=== PATIENT | male | born 1985 | race Caucasian/White ===

== ENCOUNTER 2016-12-17 06:10 | Emergency (ER) | payer MEDICAID ==
[2016-12-17 06:25] VITALS: BP 146/84
[2016-12-17] MEDS ORDERED: Ketorolac 60 MG/2 ML SDV IM ONE (06:38)
[2016-12-17] MEDS ORDERED: Acetaminophen/HYDROcodone 325-5 MG Tab PO ONE (06:39)
--- NOTE | 2016-12-17 06:43 | EDM.PDOC ---
ED HPI GENERAL MEDICAL PROBLEM - General Chief Complaint: ENT Problem Stated Complaint: TOOTHACHE Time Seen by Provider: 12/17/16 06:40 Source of Information: Reports: Patient History Limitations: Reports: No Limitations - History of Present Illness INITIAL COMMENTS - FREE TEXT/NARRATIVE: pt has a carious molar in the rt upper gum line. This is very painful for him. Onset: Gradual Duration: Day(s):, Getting Worse Location: Reports: Face Associated Symptoms: Reports: No Other Symptoms Right Upper Oral/Mouth Pain Score (Numeric/FACES): 9 - Related Data Allergies Allergy/AdvReac Type Severity Reaction Status Date / Time No Known Allergies Allergy Verified 04/13/13 13:51 Home Meds: Home Meds Acetaminophen [Tylenol Extra Strength] 2,000 mg PO ASDIRECTED 12/17/16 [History] Ibuprofen 1,200 mg PO ASDIRECTED 12/17/16 [History] QUEtiapine [SEROquel] 300 mg PO DAILY 12/17/16 [History] Past Medical History Musculoskeletal History: Reports: Fracture Psychiatric History: Reports: Dementia - Infectious Disease History Infectious Disease History: Reports: Chicken Pox - Past Surgical History Male Surgical History: Reports: Other (See Below) Other Male Surgeries/Procedures: testicle removal Social & Family History - Tobacco Use Smoking Status *Q: Light Tobacco Smoker Years of Tobacco use: 15 Packs/Tins Daily: 0.1 Used Tobacco, but Quit: No - Caffeine Use Caffeine Use: Reports: Coffee - Alcohol Use Days Per Week of Alcohol Use: 1 Number of Drinks Per Day: 6 Total Drinks Per Week: 6 - Recreational Drug Use Recreational Drug Use: No Recreational Drug Type: Reports: Marijuana/Hashish, Other (see below) Recreational Drug Use Frequency: Daily ED ROS ENT - Review of Systems Review Of Systems: See Below Constitutional: Reports: No Symptoms HEENT: Reports: Dental Pain Respiratory: Reports: No Symptoms Cardiovascular: Reports: No Symptoms Endocrine: Reports: No Symptoms GI/Abdominal: Reports: No Symptoms : Reports: No Symptoms ED EXAM, ENT - Physical Exam Exam: See Below Text/Narrative:: pt has severe pain in the rt upper molar area. Exam Limited By: No Limitations General Appearance: Alert, Moderate Distress Ears: Normal TMs Nose: Normal Inspection Mouth/Throat: Dental Pain, Dental Tenderness Head: Atraumatic Neck: Normal Inspection Respiratory/Chest: No Respiratory Distress Course - Vital Signs Last Recorded V/S: Last Vital Signs Temp 35.8 C 12/17/16 06:21 Pulse 53 L 12/17/16 06:21 Resp 16 12/17/16 06:21 BP 146/84 H 12/17/16 06:21 Pulse Ox 98 12/17/16 06:21 - Orders/Labs/Meds Meds: Medications Discontinued Medications Generic Name Dose Route Start Last Admin Trade Name Freq PRN Reason Stop Dose Admin Hydrocodone Bitart/Acetaminophen 1 tab 12/17/16 06:39 Bronson 325-5 Mg PO 12/17/16 06:40 ONETIME ONE Ketorolac Tromethamine 60 mg 12/17/16 06:38 Toradol IM 12/17/16 06:39 ONETIME ONE - Re-Assessments/Exams Free Text/Narrative Re-Assessment/Exam: 12/17/16 06:45 pt had a dental appt in 1 week in [facility] but he has now moved. The pain has now gotten much worse. The tooth was to be extracted in [place] but he has now moved. Departure - Departure Time of Disposition: 06:48 Disposition: Home, Self-Care 01 Condition: Fair Clinical Impression: Carious teeth - Discharge Information Forms: ED Department Discharge Care Plan Goals: to the dental clinic this am to wait. amoxicilloin 500mg tid, tylenol 3 1 tab q6h prn for pain.
== END 2016-12-17 07:04 | disposition home or self-care (01) ==
LOC: JP.ED 06:10
DX: K02.9 Dental caries, unspecified (principal); F17.210 Nicotine dependence, cigarettes, uncomplicated; Z79.899 Other long term (current) drug therapy; Z90.79 Acquired absence of other genital organ(s)
CPT/HCPCS: 96372; 99283; A9270; J1885

== ENCOUNTER 2017-03-05 01:56 | Emergency (ER) | payer MEDICAID ==
[2017-03-05] MEDS ORDERED: Bacitracin Oint 1 GM U/D Packet TOP ONE (02:06)
[2017-03-05 02:21] VITALS: BP 140/85
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
== END 2017-03-05 03:13 | disposition home or self-care (01) ==
LOC: MERGE 01:56 → EDSEX 01:56 → JP.ED 01:56
DX: S01.511A Laceration without foreign body of lip, initial encounter (principal); H11.32 Conjunctival hemorrhage, left eye; Y09 Assault by unspecified means
CPT/HCPCS: 12013; 99283-25

== ENCOUNTER 2021-04-13 01:36 | Emergency (ER) | payer OTHER ==
--- NOTE | 2021-04-13 01:56 | EDM.PDOCBH ---
ED HPI GENERAL MEDICAL PROBLEM - General Chief Complaint: Behavioral/Psych Stated Complaint: evaluation Time Seen by Provider: 04/13/21 01:43 Source of Information: Reports: Patient, Police History Limitations: Reports: No Limitations - History of Present Illness INITIAL COMMENTS - FREE TEXT/NARRATIVE: Palmer is a 35-year-old male who presents to the ED via [facility] for evaluation of depression, intoxication, and suicide ideation. The patient is cooperative and calm describing that he is going through a divorce. The patient got in December and his left him in January and has been going through divorce proceedings since. The patient has a history significant for depression since childhood and has had several inpatient admissions related to depression at facilities including [facility], [facility], and [place] to name a few. He has had a previous suicide attempt by overdose of aspirin at age 14 and reports that he is currently on parole for felony gun possession when he took a handgun to his head threatening suicide in 2018. He does report drinking 4 strong drinks tonight and law enforcement said that his PBT was 0.77. He has had difficulty with sleep. He is a little slow to answer questions tonight because he took his Seroquel nighttime dose prior to being brought in. He was on another medication which was a mood stabilizer, however, states that he has not used it in several months. He is here voluntarily wanting to get help. He is up in this area because he came to visit his daughter. Family called law enforcement to intervene because he was suicidal. - Related Data Allergies Allergy/AdvReac Type Severity Reaction Status Date / Time No Known Allergies Allergy Verified 04/13/21 01:51 Home Meds: Home Meds QUEtiapine [SEROquel] 100 mg PO DAILY 12/17/16 [History] Past Medical History - Past Health History Medical/Surgical History: Denies Medical/Surgical History Musculoskeletal History: Reports: Fracture Psychiatric History: Reports: Anxiety, Other (See Below) Other Psychiatric History: mood stabilizer - Infectious Disease History Infectious Disease History: Reports: Chicken Pox - Past Surgical History Male Surgical History: Reports: Other (See Below) Other Male Surgeries/Procedures: testicle removal Social & Family History - Caffeine Use Caffeine Use: Reports: Coffee - Living Situation & Occupation Occupation: Unemployed (Lives with his parents) ED ROS GENERAL - Review of Systems Review Of Systems: See Below Constitutional: Reports: No Symptoms HEENT: Reports: No Symptoms Respiratory: Reports: No Symptoms Cardiovascular: Reports: No Symptoms Endocrine: Reports: No Symptoms GI/Abdominal: Reports: No Symptoms : Reports: No Symptoms Musculoskeletal: Reports: No Symptoms Skin: Reports: No Symptoms Neurological: Reports: No Symptoms Psychiatric: Reports: Anxiety, Depression, Suicidal Ideation, Other (Trouble with concentration, trouble with sleep due to the mind racing, currently unemployed because of the concentration issues but 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.) Hematologic/Lymphatic: Reports: No Symptoms Immunologic: Reports: No Symptoms ED EXAM, BEHAVIORAL HEALTH - Physical Exam Exam: See Below Exam Limited By: No Limitations General Appearance: Alert, Anxious Eye Exam: Bilateral Eye: Conjunctival Injection ("bloodshot eyes"), EOMI, PERRL Throat/Mouth: Normal Inspection, Normal Oropharynx, Normal Voice, No Airway Compromise Head: Atraumatic, Normocephalic Neck: Normal Inspection, Supple Respiratory/Chest: No Respiratory Distress, Lungs Clear, Normal Breath Sounds Cardiovascular: Normal Peripheral Pulses, Regular Rate, Rhythm, No Murmur GI/Abdominal: Normal Bowel Sounds, Soft, Non-Tender Back Exam: Normal Inspection, Full Range of Motion Extremities: Normal Inspection, Normal Range of Motion Neurological: Alert, CN II-XII Intact, Normal Cognition, Normal Gait, No Motor/Sensory Deficits, Oriented x 3 Psychiatric: Depressed Mood, Flat Affect, Poor Eye Contact, Suicidal Thoughts Skin Exam: Warm, Dry COURSE, BEHAVIORAL HEALTH COMP - Course Vital Signs: Last Vital Signs Temp 36.6 C 04/13/21 02:13 Pulse 114 H 04/13/21 02:13 Resp 18 04/13/21 02:13 BP 120/77 04/13/21 02:13 Pulse Ox 98 04/13/21 02:13 Orders, Labs, Meds: Laboratory Tests 04/13/21 04/13/21 04/13/21 Range/Units 01:56 01:56 01:56 WBC 9.4 (4.5-11.0) K/uL RBC 4.54 (4.30-5.90) M/uL Hgb 14.0 (12.0-15.0) g/dL Hct 42.0 (40.0-54.0) % MCV 93 (80-98) fL MCH 31 (27-31) pg MCHC 33 (32-36) % Plt Count 208 (150-400) K/uL Neut % (Auto) 50.2 (36-66) % Lymph % (Auto) 36.2 (24-44) % Franklin % (Auto) 8.9 H (2-6) % Eos % (Auto) 3.5 (2-4) % Baso % (Auto) 1.2 H (0-1) % Sodium 141 (140-148) mmol/L Potassium 3.9 (3.6-5.2) mmol/L Chloride 102 (100-108) mmol/L Carbon Dioxide 26 (21-32) mmol/L Anion Gap 13.0 (5.0-14.0) mmol/L BUN 13 (7-18) mg/dL Creatinine 0.9 (0.8-1.3) mg/dL Est Cr Clr Drug Dosing 112.38 mL/min Estimated GFR (MDRD) > 60 (>60) Glucose 105 (74-106) mg/dL Calcium 8.4 L (8.5-10.1) mg/dL Total Bilirubin 0.3 D (0.2-1.0) mg/dL AST 19 (15-37) U/L ALT 30 (12-78) U/L Alkaline Phosphatase 65 (46-116) U/L Total Protein 7.1 (6.4-8.2) g/dL Albumin 4.1 (3.4-5.0) g/dL Globulin 3.0 (2.3-3.5) g/dL Albumin/Globulin Ratio 1.4 (1.2-2.2) Lipase 118 (73-393) U/L Urine Color (YELLOW) Urine Appearance (CLEAR) Urine pH (5.0-8.0) Ur Specific [place] (1.008-1.030) Urine Protein (NEGATIVE) mg/dL Urine Glucose (UA) (NEGATIVE) mg/dL Urine Ketones (NEGATIVE) mg/dL Urine Occult Blood (NEGATIVE) Urine Nitrite (NEGATIVE) Urine Bilirubin (NEGATIVE) Urine Urobilinogen (0.2-1.0) EU/dL Ur Leukocyte Esterase (NEGATIVE) Urine RBC (0-5) Urine WBC (0-5) Ur Epithelial Cells Amorphous Sediment Urine Bacteria Urine Mucus Urine Opiates Screen (NEGATIVE) Ur Oxycodone Screen (NEGATIVE) Urine Methadone Screen (NEGATIVE) Ur Propoxyphene Screen (NEGATIVE) Ur Barbiturates Screen (NEGATIVE) Ur Tricyclics Screen (NEGATIVE) Ur Phencyclidine Scrn (NEGATIVE) Ur Amphetamine Screen (NEGATIVE) U Methamphetamines Scrn (NEGATIVE) Urine MDMA Screen (NEGATIVE) U Benzodiazepines Scrn (NEGATIVE) U Cocaine Metab Screen (NEGATIVE) U Marijuana (THC) Screen (NEGATIVE) Ethyl Alcohol 39 mg/dL SARS CoV-2 RNA Rapid ISIDORO 04/13/21 04/13/21 04/13/21 Range/Units 02:03 02:03 02:11 WBC (4.5-11.0) K/uL RBC (4.30-5.90) M/uL Hgb (12.0-15.0) g/dL Hct (40.0-54.0) % MCV (80-98) fL MCH (27-31) pg MCHC (32-36) % Plt Count (150-400) K/uL Neut % (Auto) (36-66) % Lymph % (Auto) (24-44) % Franklin % (Auto) (2-6) % Eos % (Auto) (2-4) % Baso % (Auto) (0-1) % Sodium (140-148) mmol/L Potassium (3.6-5.2) mmol/L Chloride (100-108) mmol/L Carbon Dioxide (21-32) mmol/L Anion Gap (5.0-14.0) mmol/L BUN (7-18) mg/dL Creatinine (0.8-1.3) mg/dL Est Cr Clr Drug Dosing mL/min Estimated GFR (MDRD) (>60) Glucose (74-106) mg/dL Calcium (8.5-10.1) mg/dL Total Bilirubin (0.2-1.0) mg/dL AST (15-37) U/L ALT (12-78) U/L Alkaline Phosphatase (46-116) U/L Total Protein (6.4-8.2) g/dL Albumin (3.4-5.0) g/dL Globulin (2.3-3.5) g/dL Albumin/Globulin Ratio (1.2-2.2) Lipase (73-393) U/L Urine Color Yellow (YELLOW) Urine Appearance Clear (CLEAR) Urine pH 6.5 (5.0-8.0) Ur Specific [place] 1.010 (1.008-1.030) Urine Protein Negative (NEGATIVE) mg/dL Urine Glucose (UA) Negative (NEGATIVE) mg/dL Urine Ketones Negative (NEGATIVE) mg/dL Urine Occult Blood Negative (NEGATIVE) Urine Nitrite Negative (NEGATIVE) Urine Bilirubin Negative (NEGATIVE) Urine Urobilinogen 0.2 (0.2-1.0) EU/dL Ur Leukocyte Esterase Negative (NEGATIVE) Urine RBC 0-5 (0-5) Urine WBC 0-5 (0-5) Ur Epithelial Cells Rare Amorphous Sediment Not seen Urine Bacteria Few Urine Mucus Not seen Urine Opiates Screen Negative (NEGATIVE) Ur Oxycodone Screen Negative (NEGATIVE) Urine Methadone Screen Negative (NEGATIVE) Ur Propoxyphene Screen Negative (NEGATIVE) Ur Barbiturates Screen Negative (NEGATIVE) Ur Tricyclics Screen Negative (NEGATIVE) Ur Phencyclidine Scrn Negative (NEGATIVE) Ur Amphetamine Screen Negative (NEGATIVE) U Methamphetamines Scrn Negative (NEGATIVE) Urine MDMA Screen Negative (NEGATIVE) U Benzodiazepines Scrn Negative (NEGATIVE) U Cocaine Metab Screen Negative (NEGATIVE) U Marijuana (THC) Screen Presumptive positive H (NEGATIVE) Ethyl Alcohol mg/dL SARS CoV-2 RNA Rapid ISIDORO Negative Medical Clearance: 04/13/21 03:05 patient is medically cleared for admission to inpatient psychiatry. His CBC, comprehensive metabolic panel, and lipase are all normal. His ethanol is 39 and his urine tox tox screen is positive for only THC. The patient will reside with us until a suitable placement can be found. [facility] so we will board the patient until were able to find a suitable inpatient bed. 04/13/21 06:45 Care of the patient is transferred from Dr. Gaspar to Dr. Gardner while awaiting placement. Departure - Departure Time of Disposition: 13:00 Disposition: El[facility] 07 Clinical Impression: Suicide ideation, Severe depression Alcohol intoxication Qualifiers: Complication of substance-induced condition: uncomplicated Qualified Code(s): F10.920 - Alcohol use, unspecified with intoxication, uncomplicated - Discharge Information Referrals: PCP,None [Primary Care Provider] - Forms: ED Department Discharge - Problem List & Annotations (1) Alcohol intoxication SNOMED Code(s): 40372807 Code(s): F10.929 - ALCOHOL USE, UNSPECIFIED WITH INTOXICATION, UNSPECIFIED Status: Acute Priority: High Qualifiers: Complication of substance-induced condition: uncomplicated Qualified Code(s): F10.920 - Alcohol use, unspecified with intoxication, uncomplicated (2) Severe depression SNOMED Code(s): 705648904 Code(s): F32.2 - MAJOR DEPRESSV DISORD, SINGLE EPSD, SEV W/O PSYCH FEATURES Status: Acute Priority: High (3) Suicide ideation SNOMED Code(s): 0744007 Code(s): R45.851 - SUICIDAL IDEATIONS Status: Acute Priority: High - Problem List Review Problem List Initiated/Reviewed/Updated: Yes
[2021-04-13 02:29] VITALS: BP 120/77; PULSE 114
== END 2021-04-13 12:00 | disposition left against medical advice (07) ==
LOC: JP.ED 01:36
DX: F32.9 Major depressive disorder, single episode, unspecified (principal); F10.120 Alcohol abuse with intoxication, uncomplicated; Y90.1 Blood alcohol level of 20-39 mg/100 ml; Z20.822 Contact with and (suspected) exposure to COVID-19
CPT/HCPCS: 36415; 80053; 80305-QW; 80307; 81001; 83690; 85025; 99285; U0002

== ENCOUNTER 2021-04-17 09:30 | Emergency (ER) | payer SELFPAY ==
[2021-04-17 09:35] VITALS: BP 114/65; PULSE 77
--- NOTE | 2021-04-17 09:50 | EDM.PDOCBH ---
ED HPI GENERAL MEDICAL PROBLEM - General Chief Complaint: Behavioral/Psych Stated Complaint: [facility] Time Seen by Provider: 04/17/21 09:35 Source of Information: Reports: Patient, EMS History Limitations: Reports: No Limitations - History of Present Illness INITIAL COMMENTS - FREE TEXT/NARRATIVE: 35-year-old male with chronic depression, called the ambulance because for the last 4 days he has been trying to "not kill himself". He has been hiding in [place] and "camping", however when EMS arrived and the police arrived he was barricaded inside of the small home. He denies any drug or alcohol intake other than marijuana. He has been without his Seroquel which he left here 4 days ago when he eloped while we were trying to get him placed. Numerous attempts were made to call him but he did not answer. He says now that his "phone was out of data". He is now interested in being reassessed and getting placed. Onset: Unknown/Unsure Duration: Chronic, Waxing/Waning Associated Symptoms: Reports: No Other Symptoms - Related Data Allergies Allergy/AdvReac Type Severity Reaction Status Date / Time No Known Allergies Allergy Verified 04/13/21 01:51 Home Meds: Home Meds QUEtiapine [SEROquel] 100 mg PO DAILY 12/17/16 [History] Past Medical History - Past Health History Medical/Surgical History: Denies Medical/Surgical History Musculoskeletal History: Reports: Fracture Psychiatric History: Reports: Anxiety, Bipolar, Depression, Emotional Problems, Psych Hospitalization(s), Schizophrenia, Suicide Attempt, Suicidal Ideation, Other (See Below) Other Psychiatric History: mood stabilizer, borderline personality disorder - Infectious Disease History Infectious Disease History: Reports: Chicken Pox - Past Surgical History Male Surgical History: Reports: Other (See Below) Other Male Surgeries/Procedures: testicle removal Social & Family History - Tobacco Use Tobacco Use Status *Q: Current Every Day Tobacco User Years of Tobacco use: 20 Packs/Tins Daily: 1 - Caffeine Use Caffeine Use: Reports: Coffee, Soda, Tea - Recreational Drug Use Recreational Drug Use: Yes Drug Use in Last 12 Months: Yes Recreational Drug Type: Reports: Marijuana/Hashish Recreational Drug Use Frequency: Daily - Living Situation & Occupation Occupation: Unemployed (Lives with his parents) ED ROS GENERAL - Review of Systems Review Of Systems: See Below Constitutional: Denies: Fever, Chills Respiratory: Denies: Shortness of Breath Cardiovascular: Denies: Chest Pain GI/Abdominal: Denies: Nausea, Vomiting Skin: Reports: No Symptoms, Other (No self injury) Psychiatric: Reports: Depression, Suicidal Ideation ED EXAM, BEHAVIORAL HEALTH - Physical Exam Exam: See Below Exam Limited By: No Limitations General Appearance: Alert, No Apparent Distress Eye Exam: Bilateral Eye: Normal Inspection Respiratory/Chest: No Respiratory Distress, Lungs Clear Cardiovascular: Regular Rate, Rhythm Extremities: Normal Inspection Neurological: Alert, Oriented x 3 Psychiatric: Depressed Mood, Flat Affect, Tearful Skin Exam: Warm, Dry COURSE, BEHAVIORAL HEALTH COMP - Course Vital Signs: Last Vital Signs Temp 97.7 F 04/17/21 09:34 Pulse 77 04/17/21 09:34 Resp 16 04/17/21 09:34 BP 114/65 04/17/21 09:34 Pulse Ox 97 04/17/21 09:34 Orders, Labs, Meds: Laboratory Tests 04/17/21 04/17/21 04/17/21 Range/Units 09:59 09:59 09:59 WBC 9.0 (4.5-11.0) K/uL RBC 4.85 (4.30-5.90) M/uL Hgb 15.2 H (12.0-15.0) g/dL Hct 44.4 (40.0-54.0) % MCV 92 (80-98) fL MCH 31 (27-31) pg MCHC 34 (32-36) % Plt Count 235 (150-400) K/uL Neut % (Auto) 52.8 (36-66) % Lymph % (Auto) 34.1 (24-44) % Canadian % (Auto) 9.5 H (2-6) % Eos % (Auto) 3.0 (2-4) % Baso % (Auto) 0.6 (0-1) % Sodium 138 L (140-148) mmol/L Potassium 4.2 (3.6-5.2) mmol/L Chloride 103 (100-108) mmol/L Carbon Dioxide 24 (21-32) mmol/L Anion Gap 15.2 H (5.0-14.0) mmol/L BUN 22 H D (7-18) mg/dL Creatinine 1.0 (0.8-1.3) mg/dL Est Cr Clr Drug Dosing 101.14 mL/min Estimated GFR (MDRD) > 60 (>60) Glucose 105 (74-106) mg/dL Calcium 8.9 (8.5-10.1) mg/dL Urine Opiates Screen (NEGATIVE) Ur Oxycodone Screen (NEGATIVE) Urine Methadone Screen (NEGATIVE) Ur Propoxyphene Screen (NEGATIVE) Acetaminophen 0.0 L (10.0-30.0) ug/mL Ur Barbiturates Screen (NEGATIVE) Ur Tricyclics Screen (NEGATIVE) Ur Phencyclidine Scrn (NEGATIVE) Ur Amphetamine Screen (NEGATIVE) U Methamphetamines Scrn (NEGATIVE) Urine MDMA Screen (NEGATIVE) U Benzodiazepines Scrn (NEGATIVE) U Cocaine Metab Screen (NEGATIVE) U Marijuana (THC) Screen (NEGATIVE) Ethyl Alcohol < 3 mg/dL 04/17/21 Range/Units 12:46 WBC (4.5-11.0) K/uL RBC (4.30-5.90) M/uL Hgb (12.0-15.0) g/dL Hct (40.0-54.0) % MCV (80-98) fL MCH (27-31) pg MCHC (32-36) % Plt Count (150-400) K/uL Neut % (Auto) (36-66) % Lymph % (Auto) (24-44) % Canadian % (Auto) (2-6) % Eos % (Auto) (2-4) % Baso % (Auto) (0-1) % Sodium (140-148) mmol/L Potassium (3.6-5.2) mmol/L Chloride (100-108) mmol/L Carbon Dioxide (21-32) mmol/L Anion Gap (5.0-14.0) mmol/L BUN (7-18) mg/dL Creatinine (0.8-1.3) mg/dL Est Cr Clr Drug Dosing mL/min Estimated GFR (MDRD) (>60) Glucose (74-106) mg/dL Calcium (8.5-10.1) mg/dL Urine Opiates Screen Negative (NEGATIVE) Ur Oxycodone Screen Negative (NEGATIVE) Urine Methadone Screen Negative (NEGATIVE) Ur Propoxyphene Screen Negative (NEGATIVE) Acetaminophen (10.0-30.0) ug/mL Ur Barbiturates Screen Negative (NEGATIVE) Ur Tricyclics Screen Negative (NEGATIVE) Ur Phencyclidine Scrn Negative (NEGATIVE) Ur Amphetamine Screen Presumptive positive H (NEGATIVE) U Methamphetamines Scrn Presumptive positive H (NEGATIVE) Urine MDMA Screen Negative (NEGATIVE) U Benzodiazepines Scrn Negative (NEGATIVE) U Cocaine Metab Screen Negative (NEGATIVE) U Marijuana (THC) Screen Presumptive positive H (NEGATIVE) Ethyl Alcohol mg/dL Re-Assessment/Re-Exam: Patient was put on suicide precautions. CBC, BMP, EtOH and acetaminophen levels were drawn as well as a urine drug screen. He eloped 4 days ago, he will be put on hold at this time as he is high risk for self-harm. [facility] in [place] will be consulted when labs return. Labs returned reassuring including a negative alcohol and acetaminophen, however the patient was not cooperative with supplying a urine sample which is still pending. He is not being violent or disruptive however. Urine drug screen returned positive for marijuana and methamphetamines. The methamphetamine use must have been since he eloped 4 days ago because he was negative at that time. Unfortunately child protective services called in due to the fact that he is now positive for methamphetamines the children will likely be placed in protective custody which will make the patient more depressed and volatile. [facility] kindly accepted the patient for transfer. Transportation is being arranged. Departure - Departure Time of Disposition: 18:36 Disposition: DC/Tfer to Other 70 Clinical Impression: Depressive disorder, Suicide ideation - Discharge Information Referrals: PCP,None [Primary Care Provider] - Forms: ED Department Discharge Care Plan Goals: Patient will be transferred to [facility] for inpatient psychiatric stabilization and treatment for depression and suicidal ideation. Sepsis Event Note (ED) - Evaluation Sepsis Screening Result: No Definite Risk
== END 2021-04-17 18:36 | disposition other institution (70) ==
LOC: JP.ED 09:30
DX: F32.A Depression, unspecified (principal); Z72.0 Tobacco use
CPT/HCPCS: 36415; 80048; 80143; 80305-QW; 80307; 85025; 99285

== ENCOUNTER 2023-12-03 16:02 | Emergency (ER) | payer MEDICAID ==
[2023-12-03 17:37] LABS: BASOPHILS ABSOLUTE AUTO 0.07 K/uL (0.00-0.10); BASOPHILS PERCENT AUTO 0.7 % (0.1-1.3); EOSINOPHILS ABSOLUTE AUTO 0.08 K/uL (0.00-0.40); EOSINOPHILS PERCENT AUTO 0.8 % (0.0-5.4); HEMATOCRIT 41.5 % (38.4-49.7); IMMATURE GRAN ABSOLUTE AUTO 0.03 K/uL (0.00-0.23); IMMATURE GRAN PERCENT AUTO 0.3 % (0.0-0.7); LYMPHOCYTES ABSOLUTE AUTO 2.55 K/uL (0.8-3.3); LYMPHOCYTES PERCENT AUTO 26.7 % (11.4-47.7); MEAN CORPUSCULAR HEMOGLOBIN 33.9 pg (31.6-35.5); MEAN CORPUSCULAR HGB CONC 36.1 g/dL (31.6-35.5); MEAN CORPUSCULAR VOLUME 93.7 fL (81.4-99.0); MONOCYTES ABSOLUTE AUTO 0.88 K/uL (0.20-0.90); MONOCYTES PERCENT AUTO 9.2 % (3.3-12.6); NEUTROPHILS ABSOLUTE AUTO 5.95 K/uL (1.0-7.6); NEUTROPHILS PERCENT AUTO 62.3 % (40.0-78.1); PLATELET COUNT,PLT 174 K/uL (130-375); RED BLOOD CELL COUNT 4.43 M/uL (4.14-5.76); WHITE BLOOD CELL COUNT,WBC 9.6 K/uL (3.2-11.0)
[2023-12-03] MEDS ORDERED: cefTRIAXone 2 GM in Sodium Chloride 0.9% 50 ML IV ONE (17:54)
[2023-12-03 17:58] LABS: A/G RATIO 1.1 (1.2-2.2); ALANINE AMINOTRANSFERASE,ALT 58 U/L (12-78); ALBUMIN 4.1 g/dL (3.4-5.0); ALKALINE PHOSPHATASE 70 U/L (46-116); ASPARTATE AMNIOTRANSFERASE,AST 34 U/L (15-37); BILIRUBIN TOTAL 0.6 mg/dL (0.2-1.0); BLOOD UREA NITROGEN,BUN 18 mg/dL (7-18); CALCIUM 9.5 mg/dL (8.5-10.1); CARBON DIOXIDE,CO2 28 mmol/L (21-32); CHLORIDE,CL 99 mmol/L (100-108); CREATININE 1.1 mg/dL (0.8-1.3); EST CRCL DRUG DOSING (CG) 89.27 mL/min; ESTIMATED GFR 87 mL/min (>60); GLUCOSE RANDOM 100 mg/dL (74-106); POTASSIUM,K 4.1 mmol/L (3.6-5.2); PROTEIN TOTAL,TP 7.8 g/dL (6.4-8.2); SODIUM,NA 134 mmol/L (140-148)
[2023-12-03 18:00] LABS: ANION GAP 11.1 mmol/L (5.0-14.0)
[2023-12-03] MEDS ORDERED: Sodium Chloride 0.9% 1,000 ML IV SCH (18:00)
[2023-12-03 18:37] LABS: APPEARANCE,URINE CLEAR (CLEAR); BILIRUBIN,URINE NEGATIVE (NEGATIVE); COLOR,URINE YELLOW (YELLOW); GLUCOSE,URINE NEGATIVE (NEGATIVE); KETONES,URINE TRACE mg/dL (NEGATIVE); LEUKOCYTE ESTERASE,URINE NEGATIVE (NEGATIVE); NITRITE,URINE NEGATIVE (NEGATIVE); OCCULT BLOOD,URINE NEGATIVE (NEGATIVE); PH,URINE 6.5 (5.0-8.0); PROTEIN,URINE NEGATIVE (NEGATIVE); UROBILINOGEN,URINE 0.2 EU/dL (0.2-1.0)
[2023-12-03 18:39] LABS: AMPHETAMINES SCREEN, URINE NEGATIVE (NEGATIVE); BARBITURATE SCREEN,URINE NEGATIVE (NEGATIVE); BENZODIAZEPINES SCREEN,URINE NEGATIVE (NEGATIVE); METHADONE SCREEN, URINE NEGATIVE (NEGATIVE); METHAMPHETAMINES SCREEN, URINE NEGATIVE (NEGATIVE); OXYCODONE SCREEN,URINE NEGATIVE (NEGATIVE); PROPOXYPHENE SCREEN,URINE NEGATIVE (NEGATIVE); THC SCREEN,URINE 50 NG/ML PRESUMPTIVE POSITIVE (NEGATIVE)
[2023-12-03 18:43] LABS: AMORPHOUS SEDIMENT,URINE NOT SEEN; BACTERIA,URINE NOT SEEN; EPITHELIAL CELLS,URINE RARE; MUCUS,URINE RARE; RBC,URINE 0-5 (0-5); WBC,URINE 0-5 (0-5)
[2023-12-03 19:38] VITALS: BP 131/92; PULSE 67
== END 2023-12-03 19:35 | disposition home or self-care (01) ==
LOC: JP.ED 16:02
DX: R07.89 Other chest pain (principal); E86.0 Dehydration; F17.210 Nicotine dependence, cigarettes, uncomplicated; Z79.899 Other long term (current) drug therapy
CPT/HCPCS: 36415; 71045; 71045-26; 80053; 80305-QW; 81001; 84484; 85025; 93005; 99283; 99285

== ENCOUNTER 2025-04-03 16:00 | Emergency (ER) | payer MEDICAID ==
[2025-04-03 17:22] LABS: BASOPHILS ABSOLUTE AUTO 0.08 K/uL (0.00-0.10); BASOPHILS PERCENT AUTO 1.1 % (0.1-1.3); EOSINOPHILS ABSOLUTE AUTO 0.15 K/uL (0.00-0.40); EOSINOPHILS PERCENT AUTO 2.0 % (0.0-5.4); IMMATURE GRAN ABSOLUTE AUTO 0.01 K/uL (0.00-0.23); IMMATURE GRAN PERCENT AUTO 0.1 % (0.0-0.7); LYMPHOCYTES ABSOLUTE AUTO 3.04 K/uL (0.8-3.3); LYMPHOCYTES PERCENT AUTO 40.4 % (11.4-47.7); MONOCYTES ABSOLUTE AUTO 0.57 K/uL (0.20-0.90); MONOCYTES PERCENT AUTO 7.6 % (3.3-12.6); NEUTROPHILS ABSOLUTE AUTO 3.68 K/uL (1.0-7.6); NEUTROPHILS PERCENT AUTO 48.8 % (40.0-78.1); PLATELET COUNT,PLT 220 K/uL (130-375); RED BLOOD CELL COUNT 4.33 M/uL (4.14-5.76); WHITE BLOOD CELL COUNT,WBC 7.5 K/uL (3.2-11.0)
[2025-04-03 17:45] LABS: A/G RATIO 1.3 (1.2-2.2); ALANINE AMINOTRANSFERASE,ALT 19 U/L (12-78); ASPARTATE AMNIOTRANSFERASE,AST 14 U/L (15-37); BILIRUBIN TOTAL 0.3 mg/dL (0.2-1.0); BLOOD UREA NITROGEN,BUN 13 mg/dL (7-18); CARBON DIOXIDE,CO2 29 mmol/L (21-32); CHLORIDE,CL 101 mmol/L (100-108); CREATININE 1.0 mg/dL (0.8-1.3); EST CRCL DRUG DOSING (CG) 100.38 mL/min; ESTIMATED GFR 97 mL/min (>60); GLUCOSE RANDOM 97 mg/dL (74-106); POTASSIUM,K 4.0 mmol/L (3.6-5.2); PROTEIN TOTAL,TP 7.3 g/dL (6.4-8.2); SODIUM,NA 136 mmol/L (140-148)
[2025-04-03] MEDS: diphenhydrAMINE 50 MG/ML SDV IVPUSH ONE (17:53)
[2025-04-03] MEDS: Ketorolac 30 MG/ML SDV IVPUSH ONE (17:53)
[2025-04-03 19:01] LABS: APPEARANCE,URINE CLEAR (CLEAR); GLUCOSE,URINE NEGATIVE (NEGATIVE); OCCULT BLOOD,URINE NEGATIVE (NEGATIVE)
[2025-04-03 19:07] LABS: AMPHETAMINES SCREEN, URINE NEGATIVE (NEGATIVE); METHADONE SCREEN, URINE NEGATIVE (NEGATIVE); METHAMPHETAMINES SCREEN, URINE NEGATIVE (NEGATIVE); OXYCODONE SCREEN,URINE NEGATIVE (NEGATIVE); PROPOXYPHENE SCREEN,URINE NEGATIVE (NEGATIVE); THC SCREEN,URINE 50 NG/ML PRESUMPTIVE POSITIVE (NEGATIVE)
[2025-04-03 19:09] LABS: SQUAMOUS EPITHELIAL CELLS,UR RARE /HPF; UROTHELIAL CELLS,URINE NOT SEEN /HPF
[2025-04-03 19:16] VITALS: BP 118/86; PULSE 60
== END 2025-04-03 19:46 | disposition home or self-care (01) ==
LOC: JP.ED 16:00
DX: G58.8 Other specified mononeuropathies (principal); F17.200 Nicotine dependence, unspecified, uncomplicated; Z79.899 Other long term (current) drug therapy
CPT/HCPCS: 36415; 70450; 80053; 80305; 81001; 84443; 85025; 96374; 96375; 99285; J1200; J1885; J7030